=== PATIENT | male | born 1990 | race Hispanic/Latino ===

== ENCOUNTER 2019-10-07 09:53 | Emergency (ER) | payer BC, OTHER ==
--- OUTSIDE RECORDS SUMMARY | 2019-10-07 09:56 | XMS REPORT ---
:1990 [facility] Address [address] [place] [address] Care Team Providers Name Role Phone Unavailable Unavailable Unavailable Payers Payer Name Policy Type Policy Number Effective Date Expiration Date Problems This patient has no known problems. Allergies, Adverse Reactions, Alerts This patient has no known allergies or adverse reactions. Medications This patient has no known medications. Results Test Description Test Time Test Comments Text Results Atomic Results Result Comments - MRI LW JNT W/O CONT RT 2019-01-01 08:48:00 Patient Name: NICOLASA MEDINA Unit No: [id number] EXAMS: CPT CODE: [id number] MRI LW JNT W/[place] [id number] MRI OF THE RIGHT KNEE, WITHOUT CONTRAST DIAGNOSIS: 1. There is a full-thickness tear of the proximal anterior cruciate ligament. Partial thickness tear of the distal half of the PCL. Bone contusions posterior lateral posterior, posterior medial and, anterior lateral tibial plateau. There is also cortical depression with a bone contusion involving the terminal sulcus lateral femoral condyle. Subtle bone contusion medial femoral condyle. 2. Grade 2 partial-thickness tear proximal attachment of the MCL. The medial collateral ligament is somewhat patulous in appearance. 3. Full-thickness or near full-thickness tear of the popliteo fibular ligament. The above findings suggest posterior lateral instability. Partial-thickness periinsertional tear tear of the popliteus at the popliteal notch. Subtle partial-thickness tear posterior fibers of the distal conjoined tendon. This spectrum of findings is suggestive of posterior lateral instability and posterior lateral corner injury. 4. Large hemarthrosis. COMPARISON EXAM: None TECHNIQUE: Sagittal, axial and coronal fat-sat spin density, sagittal T1 and sagittal oblique T2-weighted sequences are obtained of the described right knee. CLINICAL HISTORY: FINDINGS: MENISCI: Medial and lateral meniscus are intact. CRUCIATE LIGAMENTS: Full-thickness ACL tear. Partial-thickness PCL tear. COLLATERAL LIGAMENTS: Grade 2 MCL sprain as described. Subtle partial-thickness tear posterior fibers of the distal attachment conjoined tendon. Patellar and quadriceps tendons are intact. OSSEOUS STRUCTURES: Chondral abnormality medial compartment knee joint. Extensive bone contusions as described above. PATELLOFEMORAL COMPARTMENT: Chondral abnormality as described above involving the patellofemoral joint. No patellar tilt, or subluxation. Medial and lateral patellar retinacula are intact. SOFT TISSUES: Large hemarthrosis. No Mancuso's cyst. No soft tissue masses. [facility] NAME: NICOLASA MEDINA [address] [place] [address] PHYS: Asim Chandler MD : 1990 AGE: 28 SEX: [place] [address] LOC: Y.MRI PHONE #: [phone] EXAM DATE: 12/31/2018 STATUS: DEP CLI FAX #: [phone] RAD #: D/C DT PAGE 1 Signed Report (CONTINUED) Patient Name: NICOLASA MEDINA Unit No: [id number] EXAMS: CPT CODE: [id number] MRI LW JNT W/[place] [id number] <Continued> at 0848 Reported and signed by: Ana Lilia Murrieta MD CC: Asim Singer MD Technologist: JT RUSSELL RT(R) Transcribed D/ (0848) MaryGVG [facility] NAME: NICOLASA MEDINA [address] [place] [address] PHYS: Asim Chandler MD : 1990 AGE: 28 SEX: Gust[place], [place] [address] LOC: Y.MRI PHONE #: [phone] EXAM DATE: 12/31/2018 STATUS: DEP CLI FAX #: [phone] RAD #: D/C DT PAGE 2 Signed Report Patient Name: NICOLASA MEDINA Unit No: [id number] EXAMS: CPT CODE: [id number] MRI LW JNT W/[place] [address] <Continued> Orig Print D/T: S: 01/01/2019 (0851) [facility] NAME: NICOLASA MEDINA [address] [facility] [address] PHYS: Asim Chandler MD : 1990 AGE: 28 SEX: M [place], [place] [address] LOC: Y.MRI PHONE #: [phone] EXAM DATE: 12/31/2018 STATUS: BRITTANY CLI FAX #: [phone] RAD #: D/C DT PAGE 3 Signed Report
[2019-10-07] MEDS ORDERED: MORPHINE 4 MG/ML SYR ONE (10:18)
[2019-10-07] MEDS ORDERED: ONDANSETRON 4 MG/2 ML VIAL ONE (10:18)
[2019-10-07] MEDS ORDERED: NA CHLORIDE 0.9% 1,000 ML ONE (10:18)
[2019-10-07 10:54] LABS: Absolute Lymphocytes (CBC) 1.8 K/uL (0.7-4.9); Basophils % 0.5 % (0-1.3); Hematocrit 43.9 % (39.6-49.0); Lymphocytes % 15.3 % (15.3-44.8); MPV 8.1 fL (7.6-11.3); RBC Red Blood Cell Count 4.97 M/uL (4.33-5.43)
--- NOTE | 2019-10-07 11:30 | RAD REPORT ---
EXAM DESCRIPTION: US - Abdomen Exam Limited - 10/07/2019 11:08 am CLINICAL HISTORY: EPIGASTRIC PAIN COMPARISON: No comparisons FINDINGS: The gallbladder demonstrates small shadowing gallstones in the gallbladder. No pericholecy stic fluid or gallbladder wall thickening. The common bile duct is normal measuring 5 mm. The liver demonstrates no findings of intrahepatic biliary dilatation. IMPRESSION: Multi stone cholelithiasis.
[2019-10-07 11:31] LABS: ALT/SGPT 19 U/L (12-78); AST/SGOT 16 U/L (15-37); Albumin 4.1 g/dL (3.4-5.0); Alkaline Phosphatase 60 U/L (45-117); BUN Blood Urea Nitrogen 11 mg/dL (7-18); Bicarbonate 26 mmol/L (21-32); Bilirubin Direct 0.3 mg/dL (0-0.2); Glucose Level 128 mg/dL (74-106); Lipase 120 U/L (73-393); Potassium 3.1 mmol/L (3.5-5.1); Protein, Total 6.8 g/dL (6.4-8.2); Sodium Level 141 mmol/L (136-145)
--- NOTE | 2019-10-07 11:47 | RAD REPORT ---
EXAM DESCRIPTION: CTAbdomen Pelvis W Contrast - 10/07/2019 11:25 am CLINICAL HISTORY: Abdominal pain. ABD PAIN COMPARISON: Abdomen Exam Limited dated 10/07/2019 TECHNIQUE: Biphasic CT imaging of the abdomen and pelvis was performed with 100 ml non-ionic IV cont rast. All CT scans are performed using dose optimization technique as appropriate and may include automated exposure control or mA/KV adjustment according to patient size. FINDINGS: The lung bases are clear. There is mild periportal edema seen in the liver. The gallbladder is mildly distended with small ston es suspected. Common bile duct is not pathologically distended. The spleen, pancreas, adrenal glands and kidneys are within normal limits. No bowel obstruction, free air, free fluid or abscess. The appendix is normal. No evidence of signi ficant lymphadenopathy. No suspicious bony findings. IMPRESSION: Mild periportal edema is seen throughout the liver. This is a nonspecific finding but ca n indicate underlying hepatic inflammation. Suggest correlation with liver function tests. The gallbladder is mildly distended with small calculi suspected. There is no dilatation of the commo n bile duct seen.
--- NOTE | 2019-10-07 12:10 | ER ---
Nurse's Notes [facility] Name: Reuben Garibay Age: 29 yrs Sex: Male : 1990 Arrival Date: 10/07/2019 Time: 09:55 Bed 14 Private MD: Diagnosis: Cholelithiasis Presentation: 10/07 10:09 Presenting complaint: Patient states: Abd pain worsening this morning, reports having sg nausea as well, denies any other symptoms at this time. Transition of care: patient was not received from another setting of care. Onset of symptoms was October 07, 2019. Risk Assessment: Do you want to hurt yourself or someone else? Patient reports no desire to harm self or others. Initial Sepsis Screen: Does the patient meet any 2 criteria? No. Patient's initial sepsis screen is negative. Does the patient have a suspected source of infection? Yes: Acute abdominal pain. Care prior to arrival: None. 10:09 Method Of Arrival: Ambulatory sg 10:09 Acuity: ADELE 3 sg Historical: - Allergies: 10:07 No Known Allergies; sg - Home Meds: 10:20 None [Active]; sg - PMHx: 10:20 None; sg - PSHx: 10:07 right shoulder surg; sg - Immunization history:: Adult Immunizations up to date. - Social history:: Smoking status: Patient/guardian denies using tobacco. - Ebola Screening: : Patient negative for fever greater than or equal to 101.5 degrees Fahrenheit, and additional compatible Ebola Virus Disease symptoms Patient denies exposure to infectious person Patient denies travel to an Ebola-affected area in the 21 days before illness onset No symptoms or risks identified at this time. Vital Signs: 10:08 BP 145 / 93; Pulse 60; Resp 17; Temp 97.9; Pulse Ox 100% on R/A; Weight 56.7 kg (R); sg Height 6 ft. (182.88 cm) (R); 10:08 Body Mass Index 16.95 (56.70 kg, 182.88 cm) sg ED Course: 09:55 Patient arrived in ED. mr 10:09 Arm band placed on. sg 10:11 Blas Vanegas NP is PHCP. pm1 10:11 Yuval Dudley MD is Attending Physician. pm1 10:13 Triage completed. sg 10:20 Arthur Harper, RN is Primary Nurse. sg 10:43 Initial lab(s) drawn, by me, sent to lab. by venipuncture 21G to left ac. dh3 11:08 US Abdomen Limited In Process Unspecified. EDMS 11:25 CT Abd/Pelvis - IV Contrast Only In Process Unspecified. EDMS 12:09 Nik Manjarrez MD is Referral Physician. pm1 Administered Medications: 10:30 Drug: NS 0.9% 1000 ml Route: IV; Rate: 1000 ml; Site: right forearm; sg 10:30 Drug: Zofran 4 mg Route: IVP; Site: right forearm; sg 10:30 Drug: morphine 4 mg Route: IVP; Site: right forearm; sg 12:30 Drug: TORadol - Ketorolac 15 mg Route: IVP; Site: right forearm; sg Outcome: 12:09 Discharge ordered by . pm1 12:52 Patient left the ED. sg Signatures: Dispatcher [employer] EDMS Arthur Harper RN RN Elena Monzon Patrick, ROPEMAN ROPEMAN pm1 Chasity Adam 3
--- NOTE | 2019-10-07 12:10 | EDPHYS ---
Physician Documentation [facility] Name: Reuben Garibay Age: 29 yrs Sex: Male : 1990 Arrival Date: 10/07/2019 Time: 09:55 Bed 14 Private MD: ED Physician Yuval Dudley HPI: 10/07 10:26 This 29 yrs old Male presents to ER via Ambulatory with complaints of pm1 Abdominal Pain. 10:26 The patient presents with abdominal pain in the upper abdomen. Onset: The pm1 symptoms/episode began/occurred today, Has been having this pain once per week for the past 3 months. The symptoms do not radiate. Associated signs and symptoms: none. Pertinent negatives: nausea, vomiting, and diarrhea, dysuria, fever. The symptoms are described as achy. Modifying factors: the symptoms are aggravated by alcohol, [place] food. Severity of pain: in the emergency department the pain is actually worse. The patient has experienced similar episodes in the past, multiple times. Historical: - Allergies: 10:07 No Known Allergies; sg - Home Meds: 10:20 None [Active]; sg - PMHx: 10:20 None; sg - PSHx: 10:07 right shoulder surg; sg - Immunization history:: Adult Immunizations up to date. - Social history:: Smoking status: Patient/guardian denies using tobacco. - Ebola Screening: : Patient negative for fever greater than or equal to 101.5 degrees Fahrenheit, and additional compatible Ebola Virus Disease symptoms Patient denies exposure to infectious person Patient denies travel to an Ebola-affected area in the 21 days before illness onset No symptoms or risks identified at this time. ROS: 10:26 Constitutional: Negative for fever, chills, and weight loss, Eyes: Negative for injury, pm1 pain, redness, and discharge, ENT: Negative for injury, pain, and discharge, Neck: Negative for injury, pain, and swelling, Cardiovascular: Negative for chest pain, palpitations, and edema, Respiratory: Negative for shortness of breath, cough, wheezing, and pleuritic chest pain. 10:26 Back: Negative for injury and pain, : Negative for injury, bleeding, discharge, and swelling, MS/Extremity: Negative for injury and deformity, Skin: Negative for injury, rash, and discoloration, Neuro: Negative for headache, weakness, numbness, tingling, and seizure. 10:26 Abdomen/GI: Positive for abdominal pain, Negative for nausea, vomiting, and diarrhea, constipation. Exam: 10:26 Constitutional: This is a well developed, well nourished patient who is awake, alert, pm1 and in no acute distress. Head/Face: Normocephalic, atraumatic. Chest/axilla: Normal chest wall appearance and motion. Nontender with no deformity. No lesions are appreciated. Cardiovascular: Regular rate and rhythm with a normal S1 and S2. No gallops, murmurs, or rubs. Normal PMI, no JVD. No pulse deficits. Respiratory: Lungs have equal breath sounds bilaterally, clear to auscultation and percussion. No rales, rhonchi or wheezes noted. No increased work of breathing, no retractions or nasal flaring. 10:26 Back: No spinal tenderness. No costovertebral tenderness. Full range of motion. Skin: Warm, dry with normal turgor. Normal color with no rashes, no lesions, and no evidence of cellulitis. MS/ Extremity: Pulses equal, no cyanosis. Neurovascular intact. Full, normal range of motion. 10:26 Abdomen/GI: Inspection: abdomen appears normal, Palpation: soft, mild abdominal tenderness, in the epigastric area and right upper quadrant, mass, is not appreciated, rebound tenderness, is not appreciated. Vital Signs: 10:08 BP 145 / 93; Pulse 60; Resp 17; Temp 97.9; Pulse Ox 100% on R/A; Weight 56.7 kg (R); sg Height 6 ft. (182.88 cm) (R); 10:08 Body Mass Index 16.95 (56.70 kg, 182.88 cm) sg MDM: 10:11 Patient medically screened. pm1 12:08 Data reviewed: vital signs. Data interpreted: Pulse oximetry: on room air is 100 %. pm1 Interpretation: normal. Counseling: I had a detailed discussion with the patient and/or guardian regarding: the historical points, exam findings, and any diagnostic results supporting the discharge/admit diagnosis, lab results, radiology results, the need for outpatient follow up, to return to the emergency department if symptoms worsen or persist or if there are any questions or concerns that arise at home. 10/07 10:14 Order name: Basic Metabolic Panel; Complete Time: 11:51 pm1 10/07 10:14 Order name: CBC with Diff; Complete Time: 11:01 pm1 10/07 10:14 Order name: Creatinine for Radiology; Complete Time: 11:10 pm1 10/07 10:14 Order name: Hepatic Function; Complete Time: 11:51 pm1 10/07 10:14 Order name: Lipase; Complete Time: 11:51 pm1 10/07 10:14 Order name: ETOH Level; Complete Time: 13:30 pm1 10/07 10:14 Order name: US Abdomen Limited; Complete Time: 11:51 pm1 10/07 10:14 Order name: IV Saline Lock; Complete Time: 10:37 pm1 10/07 10:15 Order name: CT Abd/Pelvis - IV Contrast Only; Complete Time: 11:51 pm1 Administered Medications: 10:30 Drug: NS 0.9% 1000 ml Route: IV; Rate: 1000 ml; Site: right forearm; sg 10:30 Drug: Zofran 4 mg Route: IVP; Site: right forearm; sg 10:30 Drug: morphine 4 mg Route: IVP; Site: right forearm; sg 12:30 Drug: TORadol - Ketorolac 15 mg Route: IVP; Site: right forearm; sg Disposition: 10/08 07:06 Co-signature as Attending Physician, Yuval Dudley MD I agree with the assessment and kdr plan of care. Disposition: 10/07/19 12:09 Discharged to Home. Impression: Cholelithiasis. - Condition is Stable. - Discharge Instructions: Cholelithiasis. - Prescriptions for Bentyl 20 mg Oral Tablet - take 1 tablet by ORAL route every 6 hours As needed; 20 tablet. Zofran 4 mg Oral Tablet - take 1 tablet by ORAL route every 12 hours As needed; 20 tablet. Tylenol- Codeine #3 300-30 mg Oral Tablet - take 2 tablets by ORAL route every 6 hours As needed; 20 tablet. - Work release form, Medication Reconciliation Form, Thank You Letter, Antibiotic Education, Prescription Opioid Use form. - Follow up: Emergency Department; When: As needed; Reason: Worsening of condition. Follow up: Private Physician; When: 2 - 3 days; Reason: Recheck today's complaints, Continuance of care, Re-evaluation by your physician. Follow up: Kovacev, Nik, MD; When: 2 - 3 days; Reason: Recheck today's complaints, Continuance of care, Re-evaluation by your physician. - Problem is new. - Symptoms have improved. Signatures: Dispatcher [employer] EDArthur Flores, RN RN sg Yuval Dudley MD MD kdr Blas Vanegas, AUDIT PARTNER AUDIT PARTNER pm1 Corrections: (The following items were deleted from the chart) 10/07 12:09 12:10/07/2019 12:09 Discharged to Home. Impression: Cholelithiasis. Condition is pm1 Stable. Forms are Medication Reconciliation Form, Thank You Letter, Antibiotic Education, Prescription Opioid Use. Follow up: Emergency Department; When: As needed; Reason: Worsening of condition. Follow up: Private Physician; When: 2 - 3 days; Reason: Recheck today's complaints, Continuance of care, Re-evaluation by your physician. Problem is new. Symptoms have improved. pm1 12:52 12:09 10/07/2019 12:09 Discharged to Home. Impression: Cholelithiasis. Condition is sg Stable. Discharge Instructions: Cholelithiasis. Prescriptions for Bentyl 20 mg Oral Tablet - take 1 tablet by ORAL route every 6 hours As needed; 20 tablet, Zofran 4 mg Oral Tablet - take 1 tablet by ORAL route every 12 hours As needed; 20 tablet. and Forms are Medication Reconciliation Form, Thank You Letter, Antibiotic Education, Prescription Opioid Use. Follow up: Emergency Department; When: As needed; Reason: Worsening of condition. Follow up: Private Physician; When: 2 - 3 days; Reason: Recheck today's complaints, Continuance of care, Re-evaluation by your physician. Follow up: Nik Manjarrez; When: 2 - 3 days; Reason: Recheck today's complaints, Continuance of care, Re-evaluation by your physician. Problem is new. Symptoms have improved. pm1
[2019-10-07] MEDS ORDERED: KETOROLAC 30 MG/ML INJ ONE (12:37)
[2019-10-07 14:47] VITALS: BP 145/93; TEMP 97.9; O2SAT 100
== END 2019-10-07 12:52 | disposition home or self-care (01) ==
LOC: ER 09:53
DX: K80.20 Calculus of gallbladder without cholecystitis without obstruction (principal)
CPT/HCPCS: 85025; 80048; 36415; 80320; 80076; 83690; 74177; 76705; 96375; 96374; 99283; Q9967; J7030; J2405

== ENCOUNTER 2019-10-18 08:39 | Day surgery (SDC) | payer BC ==
--- OUTSIDE RECORDS SUMMARY | 2019-10-18 08:48 | XMS REPORT ---
:1990 [facility] Address [address] [place] [address] Care Team Providers Name Role Phone Unavailable [...] 08:48:00 Patient Name: NICOLASA MEDINA Unit No: [id number] EXAMS: CPT CODE: [id number] MRI LW JNT W/[place] [address] MRI OF THE RIGHT KNEE, WITHOUT CONTRAST [...] No Mancuso's cyst. No soft tissue masses. [facility] NAME: NICOLASA MEDINA [address] [place] [address] PHYS: Asim Chandler MD : 1990 AGE: 28 SEX: [place] [address] LOC: Y.MRI PHONE #: [phone] EXAM DATE: 12/31/2018 STATUS: DEP CLI FAX #: [phone] RAD #: D/C DT PAGE 1 Signed Report (CONTINUED) Patient Name: NICOLASA MEDINA Unit No: [id number] EXAMS: CPT CODE: [id number] MRI LW JNT W/[place] [address] <Continued> at 0848 Reported and signed by: Ana Lilia Murrieta MD CC: Asim Singer MD Technologist: JT RUSSELL RT(R) Transcribed D/ (0848) MaryGVG [facility] NAME: NICOLASA MEDINA [address] [place] [address] PHYS: Asim Chandler MD : 1990 AGE: 28 SEX: [place], [place] [address] LOC: Y.MRI PHONE #: [phone] EXAM DATE: 12/31/2018 STATUS: DEP CLI FAX #: [phone] RAD #: D/C DT PAGE 2 Signed Report Patient Name: NICOLASA MEDINA Unit No: [id number] EXAMS: CPT CODE: [id number] MRI LW JNT W/[place] [address] <Continued> Orig Print D/T: S: 01/01/2019 (0851) [facility] NAME: NICOLASA MEDINA [address] [facility] [address] PHYS: Asim Chandler MD : 1990 AGE: 28 SEX: M [place], [place] [address] LOC: Y.MRI PHONE #: [phone] EXAM DATE: 12/31/2018 STATUS: BRITTANY CLI FAX #: [phone] RAD #: D/C DT PAGE 3 Signed Report
[2019-10-18] MEDS ORDERED: Ringers Lactate 1,000 ML IV ONE ×2 (08:56→11:40)
[2019-10-18] MEDS ORDERED: CEFOXITIN/SWI 1gm 1 GM/10 ML SYR ONE (08:56)
[2019-10-18] MEDS ORDERED: GLYCOPYRROLATE 0.2 MG/ML SYR ONE (10:02)
[2019-10-18] MEDS ORDERED: LIDOCAINE 2% MPF 5 ML VIAL ONE (10:02)
[2019-10-18] MEDS ORDERED: PROPOFOL 200 MG/20 ML VIAL IV ONE (10:02)
[2019-10-18] MEDS ORDERED: MIDAZOLAM HCL 2 MG/2 ML INJ ONE (10:02)
[2019-10-18] MEDS ORDERED: FENTANYL CITR 250 MCG/5 ML ONE (10:03)
[2019-10-18] MEDS ORDERED: ROCURONIUM 50 MG/5 ML VIAL IV ONE (10:05)
[2019-10-18] MEDS ORDERED: ONDANSETRON 4 MG/2 ML VIAL ONE ×2 (10:05→14:28)
[2019-10-18] MEDS ORDERED: BUPIVACA 0.5%/EPI 0.0005%/PF 10 ML VIAL ONE (10:18)
--- NOTE | 2019-10-18 12:26 | P.OP ---
Preoperative diagnosis: Cholecystitis with cholelithiasis Postoperative diagnosis: Cholecystitis with cholelithiasis Primary procedure: Laparoscopic Cholecystectomy Anesthesia: GETA + Local Estimated blood loss: <50cc Specimen: Gallbladder Findings: Grossly inflammed GB, coagulopathic, adhesions, short cystic duct Complications: None Implants: Surgicel Transferred to: Recovery Room Condition: Good
[2019-10-18] MEDS ORDERED: MEPERIDINE HCL 25 MG/0.5 ML ONE (12:27)
[2019-10-18 12:45] VITALS: O2SAT 100
[2019-10-18] MEDS ORDERED: HYDROCODONE/APAP 5/325 MG TAB PO ONE (13:50)
[2019-10-18] MEDS ORDERED: HYDROCODONE/APAP 5/325 MG TAB ONE (13:50)
[2019-10-18] MEDS ORDERED: ONDANSETRON 4 MG/2 ML VIAL IV ONE (14:31)
[2019-10-18 15:26] VITALS: BP 130/64; TEMP 97.5
--- NOTE | 2019-10-18 23:15 | OP ---
Date of Procedure: 10/18/2019 Surgeon: Nik Manjarrez MD, Preoperative Diagnoses: Cholecystitis with cholelithiasis. Postoperative Diagnoses: Cholecystitis with cholelithiasis. Procedure Performed: Laparoscopic cholecystectomy. Anesthesia: General endotracheal plus local 1/2% Marcaine with epinephrine. Estimated Blood Loss: Less than 50 mL. Specimen: Gallbladder. Findings: 1. Grossly inflamed gallbladder with significant hydropic appearance. 2. Patient was oozing from all cut surfaces and from surface of gallbladder appearing somewhat coagulopathic. 3. Dense adhesions between the omentum to the anterior surface of the gallbladder completely encasing the gallbladder. 4. Short cystic duct. 5. 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 Complications: None. Implants: Surgicel. Condition: Transferred to the recovery room in good condition. Procedure In Detail: After informed consent was obtained, patient was brought to the operating room, prepped and draped in the usual sterile fashion. After adequate anesthesia was achieved, a supraumbilical area was anesthetized with _1 /2% Marcaine and sharply incised. A 5-mm trocar was introduced in the abdomen without evidence of complication. Insufflation was obtained at 15 mmHg at this time. No injury to vital structures upon entering into the abdomen. Three additional trocars were placed in the right upper quadrant and these all similarly anesthetized and sharply incised. 5 mm trocar was introduced in the abdomen without evidence of complication. Patient was positioned with the head up right-side up position. Ratcheted grasper was used to grasp the patient's gallbladder, which required decompression at this time. A decompression needle was brought onto the field and punctured the fundus of the gallbladder. Dark black thick tarry type bile was returned, which required maximal suctioning to suction it out as it was thick and very viscous. After this was completed, the ratcheted grasper was used to grasp the patient's gallbladder at the insertion site of the needle and placed towards the patient's right shoulder with gentle traction. At this point, dissection continued to take the omentum off the anterior surface using both electrocautery and blunt dissection to expose the Ricky pouch. The gallbladder remained thickened throughout and difficult to manage due to the hydropic appearance of the gallbladder. Dissection continued down to expose the cystic duct and cystic artery. The cystic artery, however, had aberrant offshoot from a somewhat extrahepatic branch of the right hepatic artery, which came across the Ricky pouch of the gallbladder and inserted via an anterior branch, which ran on the anterior surface of the gallbladder and a posterior branch, which both were had a short course off the hepatic artery. The cystic duct also was found to be short. These structures were skeletonized prior to placing any clips and after these structures skeletonized and showing only these structures, these 3 structures entering the gallbladder. The arteries were found to be quite diminutive, however, but they were pulsatile consistent with the anatomy as described. The critical view of safety was obtained. I then placed double titanium clips on both the proximal side and singly on the distal side of both the anterior and posterior branches of the cystic duct and cystic artery and used Endo Callie to ligate these structures. The clips were found to be in decent position and there was no obvious pulsatile bleeding at this point. I then removed the gallbladder from the hepatic fossa. There was some slight oozing from the surface of the gallbladder. Fulguration was performed of the hepatic bed. There was minimal spillage of bile throughout this portion. After the gallbladder was removed from the hepatic fossa, it was placed in EndoCatch bag and removed the umbilical trocar, re-insufflation was obtained at this time. The area was copiously irrigated multiple times until completely clear. There was no additional bleeding from the gallbladder bed, but it appeared to have a somewhat oozing appearance still with minimal punctate areas of redness. As such, I brought a piece of Surgicel in and packed in the hepatic fossa and irrigated the area copiously. There was no bleeding at this portion and I left the Surgicel in place. I then placed the patient back in a neutral position, sucked out the remainder of the effluent, and removed the umbilical trocar. An umbilical trocar site was closed using Mj-Andrade suture passer and 0 Vicryl in a fashion with good approximation of the tissues. I then placed an additional iduaar-lo-yxntc suture through the fascia of 0 Vicryl with good approximation of tissues to reinforce the repair. I then completely desufflated the abdomen under direct visualization without evidence of complication. There was no additional bleeding at the end of the procedure after completely decompressing the abdomen once again and all trocars were then removed. All skin incisions were copiously irrigated and closed with a 4-0 Monocryl in a running fashion. Dermabond was placed over top. Patient tolerated the procedure well without evidence of complication, transferred to the PACU in good condition. All counts were correct at the end of the case. AGNIESZKA/CAROLINE Voice ID: [id number] Report ID: [id number]
== END 2019-10-18 14:55 | disposition home or self-care (01) ==
LOC: OR 08:39
PROVIDERS: ATTEND Surgery
PROC: 0FT44ZZ Resection of Gallbladder, Percutaneous Endoscopic Approach (ICD-10-PCS; principal; 2019-10-18 10:00)
DX: K80.12 Calculus of gallbladder with acute and chronic cholecystitis without obstruction (principal); K66.0 Peritoneal adhesions (postprocedural) (postinfection)
CPT/HCPCS: 88304; 47562; J2704; J2250; J3010; J2175; J7120 ×2; J2405 ×3

== ENCOUNTER 2021-04-29 17:38 | Emergency (ER) | payer BC, OTHER ==
--- OUTSIDE RECORDS SUMMARY | 2021-04-29 17:40 | XMS REPORT | Continuity of Care Document ---
:1990 Author Organization [facility] t Address [address] [place] [address] Care Team Providers Name Role Phone Unavailable Unavailable Unavailable Payers Payer Name Policy Type Policy Number Effective Date Expiration Date S ource Problems This patient has no known problems. Allergies, Adverse Reactions, Alerts This patient has no known allergies or adverse reactions. Medications This patient has no known medications. Procedures This patient has no known procedures. Results Test Description Test Time Test Comments Results Result [facility] e Comments - MRI LW JNT W/O 2019-01-01 Patient Name: CONT RT 08:48:00 NICOLASA MEDINA Unit No: [id number] EXAMS: CPT CODE: [id number] MRI LW JNT W/[place] [id number] MRI OF THE RIGHT KNEE, WITHOUT CONTRAST [...] No Mancuso's cyst. No soft tissue masses. [facility] NAME: NICOLASA MEDINA [address] [place] [address] PHYS: Asim Chandler MD : 1990 AGE: 28 SEX: M [place] [address] LOC: Y.MRI PHONE #: [phone] EXAM DATE: 12/31/2018 STATUS: DEP CLI FAX #: [phone] RAD #: D/C DT PAGE 1 Signed Report (CONTINUED) Patient Name: NICOLASA MEDINA Unit No: [id number] EXAMS: CPT CODE: [id number] MRI LW JNT W/[place] [address] <Continued> at 0848 Reported and signed by: Ana Lilia Murrieta MD CC: Asim Singer MD Technologist: JT RUSSELL RT(R) Transcribed D/ (0848) MaryGVG [facility] NAME: NICOLASA MEDINA [address] [place] [address] PHYS: Asim Chandler MD : 1990 AGE: 28 SEX: M [place] [address] LOC: Y.MRI PHONE #: [phone] EXAM DATE: 12/31/2018 STATUS: DEP CLI FAX #: [phone] RAD #: D/C DT PAGE 2 Signed Report Patient Name: NICOLASA MEDINA Unit No: [id number] EXAMS: CPT CODE: [id number] MRI LW JNT W/[place] [id number] <Continued> Orig Print D/T: S: 01/01/2019 (0851) [facility] NAME: NICOLASA MEDINA [address] [facility] PHYS: IHEUG - Asim Singer MD : 1990 AGE: 28 SEX: M [place], [place] [address] LOC: Y.MRI PHONE #: [phone] EXAM DATE: 12/31/2018 STATUS: DEP CLI FAX #: [phone] RAD #: D/C DT PAGE 3 Signed Report
[2021-04-29 19:44] LABS: Urine Blood Negative (Negative); Urine Glucose Negative (Negative); Urine Protein Negative (Negative); Urine pH 7.5 (5.0-7.0)
--- NOTE | 2021-04-29 20:01 | RAD REPORT ---
EXAM DESCRIPTION: US - Scrotum Testicles - 04/29/2021 7:50 pm CLINICAL HISTORY: Testicular pain COMPARISON: None FINDINGS: Right testicle measures 4 x 1.9 x 2.8 centimeters. Echotexture is homogeneous. Normal bloo d flow Left testicle measures 4.2 x 2 x 2.5 centimeters. Echotexture is homogeneous. Normal blood flow The epididymides are normal in size and echotexture. Normal blood flow is seen. 5 millimeter left spermatocele IMPRESSION: 5 millimeter left spermatocele
--- NOTE | 2021-04-29 20:09 | EDPHYS ---
Physician Documentation [facility] Name: Reuben Garibay Age: 31 yrs Sex: Male : 1990 Arrival Date: 04/29/2021 Time: 17:42 Bed 7 Private MD: ED Physician Lon Martínez HPI: 04/29 18:27 This 31 yrs old Male presents to ER via Ambulatory with complaints of Groin jmm Pain. 18:27 The patient presents with scrotal pain. Onset: The symptoms/episode began/occurred jmm gradually, 1 week(s) ago. Modifying factors: The symptoms are alleviated by nothing, the symptoms are aggravated by nothing. Associated signs and symptoms: Pertinent negatives: dysuria, fever, hematuria. The patient has not experienced similar symptoms in the past. Denies fever, vomiting, abdominal pain. Historical: - Allergies: 18:17 No Known Allergies; aa5 - PMHx: 18:17 None; aa5 - PSHx: 18:17 Cholecystectomy; aa5 18:17 right shoulder surg; aa5 - Immunization history:: Adult Immunizations unknown. - Social history:: Smoking status: Patient denies any tobacco usage or history of. ROS: 18:27 Constitutional: Negative for fever, chills, and weight loss, Cardiovascular: Negative jmm for chest pain, palpitations, and edema, Respiratory: Negative for shortness of breath, cough, wheezing, and pleuritic chest pain. 18:27 : Positive for testicular pain 18:27 All other systems are negative. Exam: 18:27 Constitutional: This is a well developed, well nourished patient who is awake, alert, jmm and in no acute distress. Head/Face: atraumatic. Eyes: EOMI, no conjunctival erythema appreciated ENT: Moist Mucus Membranes Neck: Trachea midline, Supple Chest/axilla: Normal chest wall appearance and motion. Cardiovascular: Regular rate and rhythm. No edema appreciated Respiratory: Normal respirations, no respiratory distress appreciated Abdomen/GI: Non distended, soft Back: Normal ROM 18:27 : right inguinal lymph node palpated, right scrotum non tender palpation. 18:27 Musculoskeletal/extremity: ROM: intact in all extremities. 18:27 Skin: Appearance: Color: normal in color. 18:27 Neuro: Orientation: is normal, Mentation: is normal, Memory: is normal. 18:27 Psych: Behavior/mood is pleasant, cooperative. Vital Signs: 18:16 BP 114 / 75; Pulse 79; Resp 18 S; Temp 97.8(TE); Pulse Ox 99% on R/A; Weight 56.7 kg aa5 (R); Height 5 ft. 6 in. (167.64 cm) (R); 19:44 BP 109 / 70; Pulse 65; Resp 16; Pulse Ox 97% on R/A; jb4 18:16 Body Mass Index 20.18 (56.70 kg, 167.64 cm) aa5 MDM: 18:27 Patient medically screened. [facility] 20:06 Data reviewed: vital signs, nurses notes. Counseling: I had a detailed discussion with [facility] the patient and/or guardian regarding: the historical points, exam findings, and any diagnostic results supporting the discharge/admit diagnosis, radiology results, the need for outpatient follow up, to return to the emergency department if symptoms worsen or persist or if there are any questions or concerns that arise at home. ED course: Patient is alert and non toxic in appearance in the ED. No signs of resp distress. patient advised to follow up with pcp and otherwise given strict return precautions. patient understood and agrees with the plan of care. . 04/29 18:44 Order name: Urine Culture [facility] 04/29 19:44 Order name: Urine Dipstick-Ancillary; Complete Time: 19:53 [facility] 04/29 18:44 Order name: US Scrotum Testicles [facility] 04/29 18:44 Order name: Urine Dipstick-Ancillary (obtain specimen); Complete Time: 19:44 [facility] Administered Medications: No medications were administered Disposition: 04/29/21 20:08 Discharged to Home. Impression: Lymph Node of Inguinal Region. - Condition is Stable. - Discharge Instructions: Scrotal Swelling. - Medication Reconciliation Form, Thank You Letter, Antibiotic Education, Prescription Opioid Use form. - Follow up: Charanjit Pérez MD; When: 2 - 3 days; Reason: Recheck today's complaints, Continuance of care, Re-evaluation by your physician. Addendum: 05/01/2021 07:50 Co-signature as Attending Physician, Lon Martínez MD I agree with the assessment and c ramirez plan of care. Signatures: Dispatcher [employer] Lon Montana MD MD cam Mickail, Dash, PA PA Karla Herr, RN RN aa5 Oscar Bae, RN RN jb4 Corrections: (The following items were deleted from the chart) 04/29 20:24 20:08 04/29/2021 20:08 Discharged to Home. Impression: Lymph Node of Inguinal Region. jb4 Condition is Stable. Forms are Medication Reconciliation Form, Thank You Letter, Antibiotic Education, Prescription Opioid Use. Follow up: Charanjit Pérez; When: 2 - 3 days; Reason: Recheck today's complaints, Continuance of care, Re-evaluation by your physician. elfego
--- NOTE | 2021-04-29 20:09 | ER ---
Nurse's Notes [facility] Name: Reuben Garibay Age: 31 yrs Sex: Male : 1990 Arrival Date: 04/29/2021 Time: 17:42 Bed 7 Private MD: Diagnosis: Lymph Node of Inguinal Region Presentation: 04/29 18:16 Chief complaint: Patient states: right testicular pain x 1 week ago. Pt denies aa5 difficulty voiding. Coronavirus screen: At this time, the client does not indicate any symptoms associated with coronavirus-19. Ebola Screen: Patient negative for fever greater than or equal to 101.5 degrees Fahrenheit, and additional compatible Ebola Virus Disease symptoms. Initial Sepsis Screen: Does the patient meet any 2 criteria? No. Patient's initial sepsis screen is negative. Does the patient have a suspected source of infection? No. Patient's initial sepsis screen is negative. Risk Assessment: Do you want to hurt yourself or someone else? Patient reports no desire to harm self or others. Onset of symptoms was April 2021. 18:16 Method Of Arrival: Ambulatory aa5 18:16 Acuity: ADELE 3 aa5 Triage Assessment: 18:30 General: Appears in no apparent distress. uncomfortable, Behavior is cooperative, bp appropriate for age, anxious. Pain: Complains of pain in pelvis. EENT: No deficits noted. Neuro: No deficits noted. Cardiovascular: No deficits noted. Respiratory: No deficits noted. GI: No signs and/or symptoms were reported involving the gastrointestinal system. : Reports R TESTE SWELLING. Derm: No deficits noted. Musculoskeletal: No deficits noted. Historical: - Allergies: 18:17 No Known Allergies; aa5 - PMHx: 18:17 None; aa5 - PSHx: 18:17 Cholecystectomy; aa5 18:17 right shoulder surg; aa5 - Immunization history:: Adult Immunizations unknown. - Social history:: Smoking status: Patient denies any tobacco usage or history of. Screenin:30 Abuse screen: Denies threats or abuse. Denies injuries from another. Nutritional bp screening: No deficits noted. Tuberculosis screening: No symptoms or risk factors identified. Fall Risk None identified. Assessment: 18:30 General: SEE TRIAGE NOTE. bp 19:00 Reassessment: Patient appears in no apparent distress at this time. Patient and/or jb4 family updated on plan of care and expected duration. Pain level reassessed. Patient is alert, oriented x 3, equal unlabored respirations, skin warm/dry/pink. ultrasound is at the bedside. 20:24 Reassessment: Patient appears in no apparent distress at this time. Patient and/or jb4 family updated on plan of care and expected duration. Pain level reassessed. Patient is alert, oriented x 3, equal unlabored respirations, skin warm/dry/pink. Vital Signs: 18:16 BP 114 / 75; Pulse 79; Resp 18 S; Temp 97.8(TE); Pulse Ox 99% on R/A; Weight 56.7 kg aa5 (R); Height 5 ft. 6 in. (167.64 cm) (R); 19:44 BP 109 / 70; Pulse 65; Resp 16; Pulse Ox 97% on R/A; jb4 18:16 Body Mass Index 20.18 (56.70 kg, 167.64 cm) aa5 ED Course: 17:42 Patient arrived in ED. ds1 18:16 Arm band placed on. aa5 18:17 Triage completed. aa5 18:24 Dash Carlson PA is PHCP. [facility] 18:24 Lon Martínez MD is Attending Physician. [facility] 18:30 Patient has correct armband on for positive identification. Bed in low position. Call bp light in reach. Side rails up X2. 19:00 Tejinder Montemayor, JILL is Primary Nurse. bp 19:50 US Scrotum Testicles In Process Unspecified. EDMS 20:07 Charanjit Pérez MD is Referral Physician. [facility] 20:24 No provider procedures requiring assistance completed. Patient did not have IV access jb4 during this emergency room visit. Administered Medications: No medications were administered Outcome: 20:08 Discharge ordered by . [facility] 20:24 Discharged to home ambulatory. jb4 20:24 Condition: stable 20:24 Discharge instructions given to patient, Instructed on discharge instructions, follow up and referral plans. Demonstrated understanding of instructions, follow-up care. 20:24 Patient left the ED. jb4 Signatures: Dispatcher [employer] EDMS Dash Carlson PA PA [facility] Sandy Correa ds1 Karla Soto, RN RN aa5 Oscar Bae RN RN jb Tejinder Montemayor, RN RN bp
[2021-04-29 21:00] VITALS: TEMP 97.8
[2021-04-29 21:01] VITALS: BP 109/70; O2SAT 97
== END 2021-04-29 20:24 | disposition home or self-care (01) ==
LOC: ER 17:38
DX: N43.41 Spermatocele of epididymis, single (principal)
CPT/HCPCS: 76870; 81003; 87086; 87088; 99283